=== PATIENT | female | born 1995 | race African-American/Black ===

== ENCOUNTER 2021-07-27 09:26 | Inpatient (IN) ==
[2021-07-27] MEDS ORDERED: Ringers Solution, Lactated 1,000 ML IVC ONE (09:59)
[2021-07-27] MEDS ORDERED: CeFAZolin 2,000 MG/120 ML BAG IVPB ONE (09:59)
[2021-07-27] MEDS ORDERED: Metoclopramide 10 MG/2 ML VIAL IVP ONE (09:59)
[2021-07-27] MEDS ORDERED: Famotidine 20 MG/2 ML VIAL IVP ONE (09:59)
[2021-07-27] MEDS ORDERED: Oxytocin 20 units/ LR 1000 mL 20 UNIT/1,000 ML BAG IVC ONE (09:59)
[2021-07-27] MEDS ORDERED: Oxytocin 20 units/ LR 1000 mL 20 UNIT/1,000 ML BAG IVC SCH ×2 (10:00→20:12)
[2021-07-27 10:38] LABS: Basophils % 0.5 %; Eosinophils % 0.2 %; Hematocrit 36.5 % (35.3-44.9); Hemoglobin 11.7 g/dL (11.5-15.4); Immature Granulocytes % 0.7 % (0-4); Lymphocytes # 1.4 K/mcL (0.6-4.6); Lymphocytes % 23.5 %; Mean Corpuscular HGB Conc 32.1 g/dL (31.6-35.5); Mean Corpuscular Hemoglobin 28.1 pg (28.0-33.3); Mean Corpuscular Volume 87.5 fL (83.0-100.0); Mean Platelet Volume 9.9 fL (9.4-12.4); Monocytes # 0.5 K/mcL (0.0-1.3); Monocytes % 8.2 %; Neutrophils # 4.1 K/mcL (1.6-8.9); Platelet Count 177 K/mcL (140-400); Red Blood Count 4.17 M/mcL (3.82-4.97); Red Cell Distribution Width 19.2 % (11.5-14.5); Segmented Neutrophils % 66.9 %; White Blood Count 6.1 K/mcL (4.3-11.1)
[2021-07-27 10:49] LABS: Amphetamine Screen,Urine Negative ng/mL (Cutoff=1000); Barbiturate Screen,Urine Negative ng/mL (Cutoff=200); Benzodiazepines Screen,Urine Negative ng/mL (Cutoff=200); Cannabinoid Screen,Urine Negative ng/mL (Cutoff = 50); Cocaine Screen,Urine Negative ng/mL (Cutoff= 300); Opiate Screen,Urine Negative ng/mL (Cutoff=300); Phencyclidine Screen,Urine Negative ng/mL (Cutoff=25)
[2021-07-27 11:04] LABS: Influenza A PCR Negative (Negative); Influenza B PCR Negative (Negative); Resp. Syncytial Virus PCR Negative (Negative)
[2021-07-27 11:44] LABS: SARS-CoV-2 by PCR (In House) Negative (Negative)
[2021-07-27] MEDS: Ringers Solution, Lactated 1,000 ML IVC SCH ×2 (12:27→17:23)
[2021-07-27] MEDS ORDERED: *HR* Morphine Sulfate/PF 10 MG/10 ML AMPUL ONE (17:39)
[2021-07-27] MEDS ORDERED: *HR* FentaNYL (PF) 100 MCG/2 ML VIAL ONE (17:39)
[2021-07-27] MEDS ORDERED: Ondansetron 4 MG/2 ML VIAL ONE (17:59)
[2021-07-27] MEDS ORDERED: Ringers Solution, Lactated 1,000 ML ONE (18:05)
[2021-07-27] MEDS ORDERED: Ketorolac 30 MG/ML VIAL ONE (18:59)
[2021-07-27] MEDS ORDERED: Metoclopramide 10 MG/2 ML VIAL IVP PRN (20:12)
[2021-07-27] MEDS ORDERED: Ringers Solution, Lactated 1,000 ML IVC SCH (20:12)
[2021-07-27] MEDS ORDERED: Ondansetron 4 MG/2 ML VIAL IVP PRN (20:12)
[2021-07-27] MEDS ORDERED: Rho Immune Globulin 1,500 UNIT SYRINGE IM PRN (20:12)
[2021-07-28] MEDS: Acetaminophen 325 MG TABLET PO SCH ×5 (00:15→20:21)
[2021-07-28] MEDS: *HR* OxyCODONE Immed Rel 5 MG TABLET PO PRN ×4 (00:15→20:20)
[2021-07-28] MEDS: Ibuprofen 600 MG TABLET PO SCH ×4 (07:08→20:21)
[2021-07-28 08:03] LABS: Basophils % 0.2 %; Eosinophils % 0.2 %; Hematocrit 34.9 % (35.3-44.9); Hemoglobin 11.4 g/dL (11.5-15.4); Immature Granulocytes % 0.7 % (0-4); Lymphocytes # 0.8 K/mcL (0.6-4.6); Mean Corpuscular HGB Conc 32.7 g/dL (31.6-35.5); Mean Corpuscular Hemoglobin 28.9 pg (28.0-33.3); Mean Corpuscular Volume 88.6 fL (83.0-100.0); Mean Platelet Volume 9.9 fL (9.4-12.4); Monocytes # 0.6 K/mcL (0.0-1.3); Monocytes % 6.6 %; Neutrophils # 7.7 K/mcL (1.6-8.9); Platelet Count 149 K/mcL (140-400); Red Blood Count 3.94 M/mcL (3.82-4.97); Segmented Neutrophils % 83.3 %; White Blood Count 9.2 K/mcL (4.3-11.1)
[2021-07-28] MEDS ORDERED: PNV PRENATAL PLUS MULTIVIT PO SCH (09:00)
[2021-07-28] MEDS: Prenatal Vit/FA 1 EACH TABLET PO SCH (09:08)
[2021-07-29] MEDS: *HR* OxyCODONE Immed Rel 5 MG TABLET PO PRN ×6 (00:18→22:03)
[2021-07-29] MEDS ORDERED: *HR* OxyCODONE Immed Rel 5 MG TABLET PO ONE (01:48)
[2021-07-29] MEDS: Acetaminophen 325 MG TABLET PO SCH ×4 (02:04→20:18)
[2021-07-29] MEDS: Ibuprofen 600 MG TABLET PO SCH ×4 (02:04→20:17)
[2021-07-29] MEDS: Simethicone 80 MG TAB.CHEW PO PRN ×2 (02:06→20:16)
[2021-07-29] MEDS: Prenatal Vit/FA 1 EACH TABLET PO SCH (07:54)
[2021-07-29] MEDS ORDERED: FLU Vac QV 21-22 (6Month+)/PF 0.5 ML SYRINGE IM ONE (10:36)
[2021-07-29 14:00] VITALS: O2SAT 98
[2021-07-29 21:45] VITALS: TEMP 98.6
[2021-07-30] MEDS: *HR* OxyCODONE Immed Rel 5 MG TABLET PO PRN ×3 (04:38→13:36)
[2021-07-30] MEDS: Acetaminophen 325 MG TABLET PO SCH ×2 (04:39→10:41)
[2021-07-30] MEDS: Ibuprofen 600 MG TABLET PO SCH ×2 (04:39→10:41)
[2021-07-30 07:28] VITALS: BP 98/57; PULSE 104
[2021-07-30] MEDS: Prenatal Vit/FA 1 EACH TABLET PO SCH (07:35)
[2021-07-30] MEDS: Simethicone 80 MG TAB.CHEW PO PRN (07:35)
== END 2021-07-30 17:49 | disposition home or self-care (01) | DRG 540 ==
LOC: 1NENULAB 09:26 → 1NENUOBS 22:17
PROVIDERS: ADMIT Student in an Organized Health Care Education/Training Program; ATTEND Student in an Organized Health Care Education/Training Program